=== PATIENT | female | born 1985 | race Caucasian/White ===

== ENCOUNTER 2018-06-12 05:47 | Inpatient (IN) | payer BC ==
[~2018-06-12] VITALS: Ht 172.7 cm; Wt 90.0 kg
[~2018-06-12 05:47] MED LIST: OXYC-302 PO; POLY17PO5 PO
[2018-06-12] MEDS ORDERED: OXYTOCIN 30U/ 0.9% NaCL 500ML 500 ML IV SCH (06:23)
[2018-06-12] MEDS ORDERED: LACTATED RINGERS 1,000 ML IV SCH (06:23)
[2018-06-12] MEDS ORDERED: PREN-59 PO (06:28)
[2018-06-12] MEDS ORDERED: LACTATED RINGERS 1,000 ML IVBOLUS ONE (06:30)
[2018-06-12] MEDS ORDERED: SODIUM CITRATE/CITRIC ACID 30 ML UDC PO ONE (06:30)
[2018-06-12] MEDS ORDERED: METOCLOPRAMIDE 5 MG/ML, 2ML IV ONE (06:30)
[2018-06-12] MEDS ORDERED: NEWBORN KIT ONE (06:33)
[2018-06-12] MEDS ORDERED: SODIUM CITRATE/CITRIC ACID 30 ML UDC ONE (06:33)
[2018-06-12] MEDS ORDERED: METOCLOPRAMIDE 5 MG/ML, 2ML ONE (06:33)
[2018-06-12] MEDS ORDERED: OXYTOCIN 30U/ 0.9% NaCL 500ML 500 ML ONE (06:34)
[2018-06-12] MEDS ORDERED: PLEASE ENTER HEIGHT AND WEIGHT MC SCH (07:00)
[2018-06-12] MEDS ORDERED: EPHEDRINE 50 MG/ML, 1ML ONE (07:08)
[2018-06-12] MEDS ORDERED: PHENYLEPHRINE 10 MG/ML ONE (07:08)
[2018-06-12] MEDS ORDERED: morphine SULFATE/PF 0.5 MG/ML, 10ML ONE (07:08)
[2018-06-12] MEDS ORDERED: OXYTOCIN 10 UNITS/ML, 1ML ONE (07:08)
[2018-06-12] MEDS ORDERED: CEFAZOLIN 1,000 MG ONE (07:08)
[2018-06-12] MEDS ORDERED: ONDANSETRON 2MG/ML, 2ML ONE (07:08)
[2018-06-12 07:13] LABS: BASOPHILS # (AUTO) 0.03 x10^3/uL (0-0.1); BASOPHILS % (AUTO) 0 % (0-1); EOSINOPHILS # (AUTO) 0.09 x10^3/uL (0-0.4); EOSINOPHILS % (AUTO) 1 % (1-7); LYMPHOCYTES # (AUTO) 1.45 x10^3/uL (1-3.4); LYMPHOCYTES % (AUTO) 12 % (22-44); MD NO; MEAN CORPUSCULAR HEMOGLOBIN 28.1 pg (27.0-34.8); MEAN CORPUSCULAR HGB CONC 33.8 g/dL (32.4-35.8); MEAN CORPUSCULAR VOLUME 83.1 fL (80-100); MEAN PLATELET VOLUME 8.2 fL (7.4-10.4); MONOCYTES % (AUTO) 7 % (2-9); NEUTROPHILS # (AUTO) 9.93 x10^3/uL (1.8-6.8); NEUTROPHILS % (AUTO) 81 % (42-75); PLATELET COUNT 233 x10^3/uL (130-400); RED CELL DISTRIBUTION WIDTH 13.4 % (9.6-15.2)
[2018-06-12] MEDS: LACTATED RINGERS 1,000 ML IV SCH ×4 (08:34→18:34)
[2018-06-12] MEDS: OXYTOCIN 30U/ 0.9% NaCL 500ML 500 ML IV SCH ×2 (08:34→18:34)
[2018-06-12] MEDS ORDERED: MISOPROSTOL 200 MCG TABLET PR PRN (09:00)
[2018-06-12] MEDS ORDERED: ACETAMINOPHEN 325 MG TABLET PO PRN (09:00)
[2018-06-12] MEDS ORDERED: morphine SULFATE 10 MG/ML, 1ML IVPush PRN ×2 (09:00)
[2018-06-12] MEDS ORDERED: METHYLERGONOVINE 0.2 MG/ML IM PRN (09:00)
[2018-06-12] MEDS ORDERED: CARBOPROST TROMETHAMINE 250 MCG/ML, 1ML IM PRN (09:00)
[2018-06-12] MEDS: PRENATAL VIT/IRON/FA 1 EACH TABLET PO SCH (09:00)
[2018-06-12] MEDS ORDERED: CALCIUM CARBONATE 500 MG TAB.CHEW PO PRN (09:00)
[2018-06-12] MEDS ORDERED: ONDANSETRON 2MG/ML, 2ML IV PRN (09:00)
[2018-06-12] MEDS ORDERED: KETOROLAC 30 MG/1 ML ONE (09:12)
[2018-06-12] MEDS ORDERED: OXYcodone 5 MG/5 ML ORAL.SOL UDC ONE (09:21)
[2018-06-12] MEDS ORDERED: OXYcodone ORAL.CONC 20 MG/ML PO ONE (09:30)
[2018-06-12] MEDS ORDERED: KETOROLAC 30 MG/1 ML IVPush ONE (09:30)
[2018-06-12] MEDS ORDERED: OXYcodone IR 5MG TABLET PO PRN (09:30)
[2018-06-12] MEDS ORDERED: FENTANYL PF 100 MCG/2ML ONE (09:51)
[2018-06-12] MEDS: FENTANYL PF 100 MCG/2ML IV PRN ×2 (09:52→10:17)
[2018-06-12 10:30] VITALS: BP 111/70
[2018-06-12 11:00] VITALS: BP 111/70
[2018-06-12] MEDS: OXYcodone/APAP 5/325MG TABLET PO PRN ×4 (12:22→21:30)
[2018-06-12 15:00] VITALS: BP 100/66
[2018-06-12] MEDS: IBUPROFEN 600 MG TABLET PO PRN ×2 (15:22→21:29)
[2018-06-12 15:49] LABS: BASOPHILS # (AUTO) 0.02 x10^3/uL (0-0.1); BASOPHILS % (AUTO) 0 % (0-1); EOSINOPHILS # (AUTO) 0.03 x10^3/uL (0-0.4); EOSINOPHILS % (AUTO) 0 % (1-7); LYMPHOCYTES # (AUTO) 1.19 x10^3/uL (1-3.4); LYMPHOCYTES % (AUTO) 8 % (22-44); MD NO; MEAN CORPUSCULAR HEMOGLOBIN 28.2 pg (27.0-34.8); MEAN CORPUSCULAR HGB CONC 33.7 g/dL (32.4-35.8); MEAN CORPUSCULAR VOLUME 83.5 fL (80-100); MEAN PLATELET VOLUME 7.4 fL (7.4-10.4); MONOCYTES # (AUTO) 0.83 x10^3/uL (0.2-0.8); MONOCYTES % (AUTO) 6 % (2-9); NEUTROPHILS # (AUTO) 12.16 x10^3/uL (1.8-6.8); NEUTROPHILS % (AUTO) 85 % (42-75); PLATELET COUNT 213 x10^3/uL (130-400); RED BLOOD COUNT 3.57 x10^6/uL (3.82-5.3); RED CELL DISTRIBUTION WIDTH 13.5 % (9.6-15.2)
[2018-06-12 16:00] VITALS: BP 100/66
[2018-06-12 20:02] VITALS: BP 95/62
[2018-06-12] MEDS: DOCUSATE 100 MG CAPSULE PO PRN (21:29)
[2018-06-13 00:13] VITALS: BP 100/64
[2018-06-13] MEDS: LACTATED RINGERS 1,000 ML IV SCH ×4 (00:34→14:34)
[2018-06-13] MEDS: OXYcodone/APAP 5/325MG TABLET PO PRN ×5 (02:04→17:22)
[2018-06-13] MEDS: OXYTOCIN 30U/ 0.9% NaCL 500ML 500 ML IV SCH ×2 (04:34→14:34)
[2018-06-13] MEDS: IBUPROFEN 600 MG TABLET PO PRN ×4 (04:46→23:38)
[2018-06-13 05:00] VITALS: BP 103/67
[2018-06-13] MEDS: SIMETHICONE 80 MG CHEW TAB PO PRN (06:14)
[2018-06-13 08:20] VITALS: BP 113/70
[2018-06-13] MEDS: DOCUSATE 100 MG CAPSULE PO PRN ×2 (08:34→21:35)
[2018-06-13] MEDS: PRENATAL VIT/IRON/FA 1 EACH TABLET PO SCH ×2 (09:00→18:25)
[2018-06-13 19:55] VITALS: BP 117/68
[2018-06-13] MEDS: OXYcodone IR 5MG TABLET PO PRN (21:35)
[2018-06-14] MEDS: OXYcodone IR 5MG TABLET PO PRN (03:09)
[2018-06-14] MEDS: IBUPROFEN 600 MG TABLET PO PRN (06:27)
[2018-06-14 07:45] VITALS: BP 119/82
[2018-06-14] MEDS: OXYcodone/APAP 5/325MG TABLET PO PRN (08:42)
[2018-06-14] MEDS: SIMETHICONE 80 MG CHEW TAB PO PRN (08:42)
[2018-06-14] MEDS: DOCUSATE 100 MG CAPSULE PO PRN (08:42)
[2018-06-14] MEDS ORDERED: OXYC-302 PO (12:17)
[2018-06-14] MEDS ORDERED: IBUP-1222 PO (12:17)
== END 2018-06-14 14:25 | disposition home or self-care (01) | DRG 785 ==
LOC: LDIP 05:47 → 2NW 10:25
PROVIDERS: ADMIT Obstetrics & Gynecology; ATTEND Obstetrics & Gynecology
PROC: 10D00Z1 Extraction of Products of Conception, Low, Open Approach (ICD-10-PCS; principal; 2018-06-12)
PROC: 0UB70ZZ Excision of Bilateral Fallopian Tubes, Open Approach (ICD-10-PCS; 2018-06-12)
DX: O32.1XX0 Maternal care for breech presentation, not applicable or unspecified (principal); O69.81X0 Labor and delivery complicated by cord around neck, without compression, not applicable or unspecified; Z30.2 Encounter for sterilization; Z37.0 Single live birth; Z3A.39 39 weeks gestation of pregnancy
CPT/HCPCS: 36415; 85025; 86850; 86900; 88302; G0378; J0690; J1885; J2274; J2405; J3010; C1765; J2270; J2370; J2590; J2765; J7120